=== PATIENT | female | born 1995 | race Caucasian/White ===

== ENCOUNTER 2017-05-07 00:03 | Emergency (ER) | payer BC, MEDICAID, OTHER ==
[~2017-05-07] VITALS: Ht 160 cm; Wt 78.0 kg
[2017-05-07 00:08] VITALS: Ht 160 cm; Wt 78.0 kg
[2017-05-07 00:51] LABS: URINE BLOOD (Dip) POC Negative (NEGATIVE)
--- NOTE | 2017-05-07 00:56 | ERD ---
ER Documentation Chief Complaint Chief Complaint abd pain x 2 days, nausea, denies vomitting HPI The patient is a 22-year-old female, presenting to the ER because of right- sided abdominal pain for 2 days, worse today, no aggravating/relieving factor. He denies similar symptoms previously, denies fever, vomiting, diarrhea, constipation, dysuria. She does not smoke, drinks socially, smokes marijuana Past medical/surgical history: None ROS All systems reviewed and are negative except as per history of present illness. Medications Home Meds Active Scripts Ibuprofen* (Motrin*) 600 Mg Tab, 600 MG PO Q6, #20 TAB Prov:RONDA AGUIAR MD 05/07/17 Sulfamethoxazole/Trimethoprim* (Bactrim Ds* Tablet) 1 Each Tablet, 1 TAB PO BID , #14 TAB Prov:RONDA AGUIAR MD 05/07/17 Allergies Allergies: Coded Allergies: No Known Allergy (Unverified , 05/07/17) PMhx/Soc Medical and Surgical Hx: pt denies Medical Hx, pt denies Surgical Hx Hx Alcohol Use: Yes Hx Substance Use: Yes Hx Tobacco Use: Yes (marijuana only) Smoking Status: Light tobacco smoker Physical Exam Vitals Vital Signs Date Time Temp Pulse Resp B/P Pulse Ox O2 Delivery O2 Flow Rate FiO2 05/07/17 00:08 98.1 80 20 131/81 99 Physical Exam Const: No acute distress. Head: Atraumatic. Eyes: Normal Conjunctiva. ENT: Normal External Ears, Nose and Mouth. Neck: Full range of motion. No meningismus. Resp: Clear to auscultation bilaterally. Cardio: Regular rate and rhythm. Abd: Soft, non distended, normal bowel sounds, minimal and vague right -sided abdominal tenderness Skin: No petechiae or rashes. Back: No midline or flank tenderness. Ext: No cyanosis, or edema. Neur: Awake and alert. No focal deficit Psych: Normal Mood and Affect. Result Diagram: 05/07/174005/07/171 Results 24 hrs Laboratory Tests Test 05/07/17 00:41 05/07/17 00:50 White Blood Count 12.710^3/ul Red Blood Count 4.4810^6/ul Hemoglobin 10.9g/dl Hematocrit 33.9% Mean Corpuscular Volume 75.7fl Mean Corpuscular Hemoglobin 24.3pg Mean Corpuscular Hemoglobin Concent 32.2g/dl Red Cell Distribution Width 15.9% Platelet Count 89628^3/UL Mean Platelet Volume 10.0fl Neutrophils % 49.1% Lymphocytes % 40.2% Monocytes % 6.3% Eosinophils % 3.4% Basophils % 0.7% Nucleated Red Blood Cells % 0.0/100WBC Neutrophils # 6.310^3/ul Lymphocytes # 5.110^3/ul Monocytes # 0.810^3/ul Eosinophils # 0.410^3/ul Basophils # 0.110^3/ul Nucleated Red Blood Cells # 0.010^3/ul Sodium Level 142mmol/L Potassium Level 3.6mmol/L Chloride Level 103mmol/L Carbon Dioxide Level 29mmol/L Anion Gap 14 Blood Urea Nitrogen 19mg/dl Creatinine 0.87mg/dl Glucose Level 99mg/dl Calcium Level 9.4mg/dl Total Bilirubin 0.1mg/dl Direct Bilirubin 0.00mg/dl Indirect Bilirubin 0.1mg/dl Aspartate Amino Transf (AST/SGOT) 25IU/L Alanine Aminotransferase (ALT/SGPT) 37IU/L Alkaline Phosphatase 78IU/L Total Protein 8.4g/dl Albumin 4.3g/dl Globulin 4.10g/dl Albumin/Globulin Ratio 1.04 Lipase 138U/L Bedside Urine pH (LAB) 7.0 Bedside Urine Protein (LAB) Negative Bedside Urine Glucose (UA) Negative Bedside Urine Ketones (LAB) Negative Bedside Urine Blood Negative Bedside Urine Nitrite (LAB) Negative Bedside Urine Leukocyte Esterase (L 1+ Current Medications Medications (Trade) Dose Ordered Sig/Hood Route PRN Reason Start Time Stop Time Status Last Admin Dose Admin Ketorolac Tromethamine (Toradol) 30 mg ONCE STAT IV 05/07/17 01:00 05/07/17 01:02 DC 05/07/17 01:07 Procedures/[place] [id number] Radiology Main Line: [phone] DIAGNOSTIC IMAGING REPORT Patient: GRANT AVALOS : 1995 Age: 22 Sex: F MR #: [id number] DOS: 05/07/17 0100 Ordering MD: RONDA AGUIAR MD Location: E/R Room/Bed: PROCEDURE: US abdomen limited right upper quadrant. CLINICAL INDICATION: Abdominal pain TECHNIQUE: Multiple real-time images were acquired of the patient's right upper quadrant of the abdomen utilizing a high resolution transducer. COMPARISON: None FINDINGS: No gallstones are identified within the gallbladder. There is no pericholecystic fluid or gallbladder wall thickening. The common bile duct measures 3.8 mm in maximal dimension. No free fluid is identified. Pancreas is not well seen due to bowel gas. Minimal diffuse increased hepatic echogenicity could be secondary to hepatic steatosis. The length of the liver equals 16.7 cm, within normal limits. The right kidney measures 10.1 cm in length and is unremarkable. IMPRESSION: Pancreas not seen. Minimal diffuse increased hepatic echogenicity could be secondary to hepatic steatosis. Otherwise unremarkable examination. Please see above. RPTAT: HJES .Jacob Mitchell MD, MD Date Time Electronically viewed and signed by .Jacob Mitchell MD, MD on 05/07/2017 01:45 .S/ CC: RONDA AGUIAR MD [place] [id number] Radiology Main Line: [phone] DIAGNOSTIC IMAGING REPORT Patient: GRANT AVALOS : 1995 Age: 22 Sex: F MR #: [id number] DOS: 05/07/17 0144 Ordering MD: RONDA AGUIAR MD Location: E/R Room/Bed: PROCEDURE: CT of the abdomen and pelvis without contrast CLINICAL INDICATION: Left lower quadrant pain. TECHNIQUE: Spiral CT images through the abdomen and pelvis without the use of oral and without the use of intravenous contrast. The administered radiation dose is CTDI 13.85 and DLP 844.82. One or more of the following dose reduction techniques were used: automated exposure control, adjustment of the mA and/or kV according to patient size, or use of iterative reconstruction technique. DICOM images are available. COMPARISON: Ultrasound from the same day FINDINGS: The study is limited by lack of intravenous contrast. Lower thorax: Slight dependent atalectasis of the lung bases is seen.. Liver: Diffuse hepatic steatosis. Slight focal fatty sparing adjacent to the gallbladder. The liver is normal in size.. Biliary: The gallbladder is unremarkable.. No biliary ductal dilatation is seen. Pancreas: Unremarkable. No focal mass or inflammatory process. Spleen: The spleen is unremarkable in appearance Adrenal glands: Unremarkable in appearance. No focal nodule.. Genitourinary: No hydronephrosis or renal calculi are seen.. The bladder is unremarkable in appearance.. Slightly dense renal papillae may reflect a degree of mild dehydration. Gastrointestinal Tract: There is no evidence for bowel obstruction, free air, or abscess. The appendix is unremarkable in appearance. Moderate stool burden. Lymph nodes: No adenopathy is seen... Vascular structures: The aorta and mesenteric vessels are unremarkable.. Peritoneal cavity: Unremarkable mesentery and peritoneum.. No mass, edema, or ascites. Reproductive Organs: Unremarkable in appearance.. Musculoskeletal: No bony abnormality is seen.. IMPRESSION: Diffuse hepatic steatosis. No definite acute abnormality of the abdomen or pelvis. Moderate stool burden.. RPTAT: HLBE Physician Antoine Date Time Electronically viewed and signed by Physician Antoine on 05/07/2017 02 :42 LE/ CC: RONDA AGUIAR MD MEDICAL MAKING DECISION: The patient is a 22-year-old female, presenting with acute cystitis, hepatic steatosis. She was treated with Toradol 30 mg IV for pain with good response, is stable for outpatient follow-up The differential diagnoses considered include but are not limited to cholelithiasis, cholecystitis, cystitis, pancreatitis, hepatitis, gastritis, peptic ulcer disease, gastric ulcer, appendicitis, diverticulitis, cholangitis, choledocholithiasis, partial small bowel obstruction. Departure Diagnosis: Primary Impression: UTI (urinary tract infection) Additional Impressions: Hepatic steatosis Anemia Condition: Good Comments She was discharged with Bactrim DS and Motrin The patient's blood pressure was elevated (>120/80) but appears stable without evidence of hypertension emergency or urgency. The patient was counseled about the risks of hypertension and urged to pursue outpatient monitoring and therapy within a week with their primary care physician. I discussed the findings with the patient. I advised the patient to follow-up with the primary physician in about 1-2 days, sooner if needed and return if any concern. Disclaimer: Inadvertent spelling and grammatical errors are likely due to EHR/ dictation software use and do not reflect on the overall quality of patient care. Also, please note that the electronic time recorded on this note does not necessarily reflect the actual time of the patient encounter. RONDA AGUIAR MD May 07, 2017 00:56
[2017-05-07] MEDS ORDERED: KETOROLAC 30 MG INJ IV STA (01:00)
[2017-05-07 01:23] LABS: ABNORMAL IP MESSAGE 1; BASOPHIL # 0.1 10^3/ul (0.0-0.1); BASOPHILS % 0.7 % (0.0-2.0); EOSINOPHILS # 0.4 10^3/ul (0.0-0.5); EOSINOPHILS % 3.4 % (0.0-7.0); HEMATOCRIT 33.9 % (37.0-47.0); HEMOGLOBIN 10.9 g/dl (12.0-16.0); LYMPHOCYTES # 5.1 10^3/ul (0.8-2.9); LYMPHOCYTES % 40.2 % (18.0-55.0); MEAN CORPUSCULAR HEMOGLOBIN 24.3 pg (29.0-33.0); MEAN CORPUSCULAR HGB CONC 32.2 g/dl (32.0-37.0); MEAN CORPUSCULAR VOLUME 75.7 fl (72.0-104.0); MONOCYTE # 0.8 10^3/ul (0.3-0.9); MONOCYTES % 6.3 % (0.0-13.0); NEUTROPHIL # 6.3 10^3/ul (1.6-7.5); NEUTROPHILS % 49.1 % (30.0-74.0); PLATELET COUNT 456 10^3/UL (140-415); RED BLOOD COUNT 4.48 10^6/ul (4.20-5.40); RED CELL DISTRIBUTION WIDTH 15.9 % (11.5-14.5); WHITE BLOOD COUNT 12.7 10^3/ul (4.8-10.8)
[2017-05-07 01:33] LABS: POSITIVE DIFF @See below
[2017-05-07 01:41] LABS: ALBUMIN 4.3 g/dl (3.3-4.9); ALBUMIN/GLOBULIN RATIO 1.04; BILIRUBIN,INDIRECT 0.1 mg/dl (0-1.1); BILIRUBIN,TOTAL 0.1 mg/dl (0.2-1.3); CALCIUM 9.4 mg/dl (8.4-10.2); CREATININE 0.87 mg/dl (0.44-1.00); POTASSIUM 3.6 mmol/L (3.5-5.1); TOTAL PROTEIN 8.4 g/dl (6.1-8.1)
--- NOTE | 2017-05-07 01:45 | RADRPT ---
PROCEDURE: US abdomen limited right upper quadrant. CLINICAL INDICATION: Abdominal pain TECHNIQUE: Multiple real-time images were acquired of the patient's right [facility] utilizing a high resolution transducer. COMPARISON: None FINDINGS: No gallstones are identified within the gallbladder. There is no pericholecystic fluid or gallbladder wall thickening. The common bile duct measures 3.8 mm in maximal dimension. No free fluid is identified. Pancreas is not well seen due to bowel gas. Minimal diffuse increased h epatic echogenicity could be secondary to hepatic steatosis. The length of the liver equals 16.7 cm, within normal limits. The right kidney measures 10.1 cm in length and is unremarkable. IMPRESSION: Pancreas not seen. Minimal diffuse increased hepatic echogenicity could be secondary to hepatic stea tosis. Otherwise unremarkable examination. Please see above. RPTAT: HJES .Jacob Mitchell MD, MD Date Time Electronically viewed and signed by .Jacob Mitchell MD, on 05/07/2017 01:45 .S/
--- NOTE | 2017-05-07 02:42 | RADRPT ---
PROCEDURE: CT of the abdomen and pelvis without contrast CLINICAL INDICATION: Left lower quadrant pain. TECHNIQUE: Spiral CT images through the abdomen and pelvis without the use of oral and without the use of intravenous contrast. The administered radiation dose is CTDI 13.85 and DLP 844.82. One or more of the following dose reduction techniques were used: automated exposure control, adjustment of the mA and/or kV according to patient size, or use of iterative reconstruction technique. DICOM mejia ges are available. COMPARISON: Ultrasound from the same day FINDINGS: The study is limited by lack of intravenous contrast. Lower thorax: Slight dependent atalectasis of the lung bases is seen.. Liver: Diffuse hepatic steatosis. Slight focal fatty sparing adjacent to the gallbladder. The liver is normal in size.. Biliary: The gallbladder is unremarkable.. No biliary ductal dilatation is seen. Pancreas: Unremarkable. No focal mass or inflammatory process. Spleen: The spleen is unremarkable in appearance Adrenal glands: Unremarkable in appearance. No focal nodule.. Genitourinary: No hydronephrosis or renal calculi are seen.. The bladder is unremarkable in appearan ce.. Slightly dense renal papillae may reflect a degree of mild dehydration. Gastrointestinal Tract: There is no evidence for bowel obstruction, free air, or abscess. The appen james is unremarkable in appearance. Moderate stool burden. Lymph nodes: No adenopathy is seen... Vascular structures: The aorta and mesenteric vessels are unremarkable.. Peritoneal cavity: Unremarkable mesentery and peritoneum.. No mass, edema, or ascites. Reproductive Organs: Unremarkable in appearance.. Musculoskeletal: No bony abnormality is seen.. IMPRESSION: Diffuse hepatic steatosis. No definite acute abnormality of the abdomen or pelvis. Moderate stool bu rden.. RPTAT: HLBE Physician Antoine Date Time Electronically viewed and signed by Physician Antoine on 05/07/2017 02:42 LE/
[2017-05-07] MEDS ORDERED: SULF1TAB31 PO (02:58)
[2017-05-07] MEDS ORDERED: IBUP-1542 PO (02:58)
[2017-05-07 03:15] VITALS: BP 113/81; PULSE 80; RESP 16; TEMP 98.2
== END 2017-05-07 03:32 | disposition home or self-care (01) ==
LOC: E/R 00:03
DX: N39.0 Urinary tract infection, site not specified (principal); K76.0 Fatty (change of) liver, not elsewhere classified; D64.9 Anemia, unspecified; F17.210 Nicotine dependence, cigarettes, uncomplicated
CPT/HCPCS: 36415; 74176; 76705; 80053; 81003; 83690; 85025; 96374; J1885; Z7502; Z7610

== ENCOUNTER 2017-10-23 10:47 | Emergency (ER) | END 2017-10-23 13:03 | disposition home or self-care (01) ==